=== PATIENT | male | born 1960 | race Caucasian/White ===

== ENCOUNTER 2025-03-08 10:02 | Inpatient (IN) | payer MEDICARE, MEDICAID ==
[2025-03-08 10:32] LABS: BASOPHILS ABSOLUTE AUTO 0.02 10^3/uL (0.00-0.10); BASOPHILS PERCENT AUTO 0.2 % (0.0-1.0); EOSINOPHILS ABSOLUTE AUTO 0.03 10^3/uL (0.10-0.30); EOSINOPHILS PERCENT AUTO 0.3 % (1.0-3.0); IMMATURE GRAN ABSOLUTE AUTO 0.03 10^3/uL (0.00-0.04); IMMATURE GRAN PERCENT AUTO 0.3 % (0.0-0.4); LYMPHOCYTES ABSOLUTE AUTO 1.61 10^3/uL (1.00-4.00); LYMPHOCYTES PERCENT AUTO 16.7 % (20.0-40.0); MEAN PLATELET VOLUME 8.9 fL (7.4-10.4); MONOCYTES ABSOLUTE AUTO 0.83 10^3/uL (0.10-0.80); MONOCYTES PERCENT AUTO 8.6 % (2.0-8.0); NEUTROPHILS ABSOLUTE AUTO 7.10 10^3/uL (2.50-7.00); NEUTROPHILS PERCENT AUTO 73.9 % (50.0-70.0); PLATELET COUNT,PLT 231 10^3/uL (150-400); RED BLOOD CELL COUNT 4.46 10^6/uL (4.50-6.00); RED CELL DISTRIBUTION WIDTH 12.5 % (11.5-14.5); WHITE BLOOD CELL COUNT,WBC 9.62 10^3/uL (5.00-10.00)
[2025-03-08 10:47] LABS: ALANINE AMINOTRANSFERASE,ALT 20.0 U/L (14-63); ASPARTATE AMNIOTRANSFERASE,AST 19.0 U/L (15-37); BILIRUBIN TOTAL 0.9 mg/dL (0.2-1.0); BLOOD UREA NITROGEN,BUN 11.0 mg/dL (7-18); CARBON DIOXIDE,CO2 20.9 mmol/L (21.0-32.0); CHLORIDE,CL 96.0 mmol/L (98-107); CREATININE 0.46 mg/dL (0.51-1.17); EST CRCL DRUG DOSING (CG) 164.87 mL/min; GLUCOSE RANDOM 85.0 mg/dL (70-140); POTASSIUM,K 4.1 mmol/L (3.5-5.1); PROTEIN TOTAL,TP 6.7 g/dL (6.4-8.2); SODIUM,NA 131.0 mmol/L (136-145)
[2025-03-08 10:48] LABS: ESTIMATED GFR 117.0 mL/min (>=60)
[2025-03-08] MEDS: Ketorolac 30 MG/ML SDV IVPUSH ONE (11:29)
[2025-03-08 12:40] LABS: APPEARANCE,URINE CLEAR (CLEAR); GLUCOSE,URINE NEGATIVE (NEGATIVE); OCCULT BLOOD,URINE NEGATIVE (NEGATIVE)
[2025-03-08] MEDS ORDERED: Ondansetron 4 MG/2 ML SDV IV PRN (15:22)
[2025-03-08] MEDS: Iopamidol 755 Mg/ML 100 ML Bottle IV ONE (16:09)
[2025-03-08] MEDS: Sennosides/Docusate Sodium 50-8.6 MG Tab PO SCH (16:18)
[2025-03-08] MEDS: Lactated Ringers 1,000 ML IV SCH (16:19)
[2025-03-08] MEDS: Ketorolac 30 MG/ML SDV IVPUSH PRN (16:19)
[2025-03-08] MEDS: Acetaminophen/oxyCODONE 325-5 MG Tab PO PRN (17:05)
[2025-03-09 07:17] LABS: BASOPHILS ABSOLUTE AUTO 0.01 10^3/uL (0.00-0.10); BASOPHILS PERCENT AUTO 0.1 % (0.0-1.0); EOSINOPHILS ABSOLUTE AUTO 0.05 10^3/uL (0.10-0.30); EOSINOPHILS PERCENT AUTO 0.7 % (1.0-3.0); IMMATURE GRAN ABSOLUTE AUTO 0.02 10^3/uL (0.00-0.04); IMMATURE GRAN PERCENT AUTO 0.3 % (0.0-0.4); LYMPHOCYTES ABSOLUTE AUTO 1.23 10^3/uL (1.00-4.00); LYMPHOCYTES PERCENT AUTO 16.9 % (20.0-40.0); MEAN PLATELET VOLUME 8.9 fL (7.4-10.4); MONOCYTES ABSOLUTE AUTO 0.67 10^3/uL (0.10-0.80); MONOCYTES PERCENT AUTO 9.2 % (2.0-8.0); NEUTROPHILS ABSOLUTE AUTO 5.28 10^3/uL (2.50-7.00); NEUTROPHILS PERCENT AUTO 72.8 % (50.0-70.0); PLATELET COUNT,PLT 223 10^3/uL (150-400); RED BLOOD CELL COUNT 3.99 10^6/uL (4.50-6.00); RED CELL DISTRIBUTION WIDTH 13.2 % (11.5-14.5); WHITE BLOOD CELL COUNT,WBC 7.26 10^3/uL (5.00-10.00)
[2025-03-09 07:48] LABS: ALANINE AMINOTRANSFERASE,ALT 22.0 U/L (14-63); ASPARTATE AMNIOTRANSFERASE,AST 22.0 U/L (15-37); BILIRUBIN TOTAL 0.8 mg/dL (0.2-1.0); BLOOD UREA NITROGEN,BUN 4.0 mg/dL (7-18); CARBON DIOXIDE,CO2 28.3 mmol/L (21.0-32.0); CHLORIDE,CL 104.0 mmol/L (98-107); CREATININE 0.47 mg/dL (0.51-1.17); EST CRCL DRUG DOSING (CG) 163.95 mL/min; GLUCOSE RANDOM 90.0 mg/dL (70-140); POTASSIUM,K 4.0 mmol/L (3.5-5.1); PROTEIN TOTAL,TP 5.7 g/dL (6.4-8.2); SODIUM,NA 138.0 mmol/L (136-145)
[2025-03-09 07:55] LABS: ESTIMATED GFR 116.0 mL/min (>=60)
[2025-03-09] MEDS: Omeprazole 20 MG Cap.CR PO SCH (12:00)
[2025-03-10 07:46] LABS: BASOPHILS ABSOLUTE AUTO 0.02 10^3/uL (0.00-0.10); BASOPHILS PERCENT AUTO 0.3 % (0.0-1.0); EOSINOPHILS ABSOLUTE AUTO 0.13 10^3/uL (0.10-0.30); EOSINOPHILS PERCENT AUTO 1.8 % (1.0-3.0); IMMATURE GRAN ABSOLUTE AUTO 0.03 10^3/uL (0.00-0.04); IMMATURE GRAN PERCENT AUTO 0.4 % (0.0-0.4); LYMPHOCYTES ABSOLUTE AUTO 1.29 10^3/uL (1.00-4.00); LYMPHOCYTES PERCENT AUTO 18.0 % (20.0-40.0); MEAN PLATELET VOLUME 8.9 fL (7.4-10.4); MONOCYTES ABSOLUTE AUTO 0.65 10^3/uL (0.10-0.80); MONOCYTES PERCENT AUTO 9.1 % (2.0-8.0); NEUTROPHILS ABSOLUTE AUTO 5.04 10^3/uL (2.50-7.00); NEUTROPHILS PERCENT AUTO 70.4 % (50.0-70.0); PLATELET COUNT,PLT 219 10^3/uL (150-400); RED BLOOD CELL COUNT 4.00 10^6/uL (4.50-6.00); RED CELL DISTRIBUTION WIDTH 13.3 % (11.5-14.5); WHITE BLOOD CELL COUNT,WBC 7.16 10^3/uL (5.00-10.00)
[2025-03-10 08:14] LABS: ALANINE AMINOTRANSFERASE,ALT 22.0 U/L (14-63); ASPARTATE AMNIOTRANSFERASE,AST 17.0 U/L (15-37); BILIRUBIN TOTAL 0.6 mg/dL (0.2-1.0); BLOOD UREA NITROGEN,BUN 5.0 mg/dL (7-18); CARBON DIOXIDE,CO2 27.7 mmol/L (21.0-32.0); CHLORIDE,CL 103.0 mmol/L (98-107); CREATININE 0.48 mg/dL (0.51-1.17); EST CRCL DRUG DOSING (CG) 160.53 mL/min; GLUCOSE RANDOM 89.0 mg/dL (70-140); POTASSIUM,K 3.9 mmol/L (3.5-5.1); PROTEIN TOTAL,TP 5.9 g/dL (6.4-8.2); SODIUM,NA 139.0 mmol/L (136-145)
[2025-03-10 08:15] LABS: ESTIMATED GFR 115.0 mL/min (>=60)
[2025-03-11 07:09] LABS: BASOPHILS ABSOLUTE AUTO 0.01 10^3/uL (0.00-0.10); BASOPHILS PERCENT AUTO 0.2 % (0.0-1.0); EOSINOPHILS ABSOLUTE AUTO 0.15 10^3/uL (0.10-0.30); EOSINOPHILS PERCENT AUTO 2.3 % (1.0-3.0); IMMATURE GRAN ABSOLUTE AUTO 0.01 10^3/uL (0.00-0.04); IMMATURE GRAN PERCENT AUTO 0.2 % (0.0-0.4); LYMPHOCYTES ABSOLUTE AUTO 1.15 10^3/uL (1.00-4.00); LYMPHOCYTES PERCENT AUTO 17.3 % (20.0-40.0); MEAN PLATELET VOLUME 8.5 fL (7.4-10.4); MONOCYTES ABSOLUTE AUTO 0.64 10^3/uL (0.10-0.80); MONOCYTES PERCENT AUTO 9.6 % (2.0-8.0); NEUTROPHILS ABSOLUTE AUTO 4.68 10^3/uL (2.50-7.00); NEUTROPHILS PERCENT AUTO 70.4 % (50.0-70.0); PLATELET COUNT,PLT 231 10^3/uL (150-400); RED BLOOD CELL COUNT 4.00 10^6/uL (4.50-6.00); RED CELL DISTRIBUTION WIDTH 13.6 % (11.5-14.5); WHITE BLOOD CELL COUNT,WBC 6.64 10^3/uL (5.00-10.00)
[2025-03-11 07:25] LABS: ALANINE AMINOTRANSFERASE,ALT 21.0 U/L (14-63); ASPARTATE AMNIOTRANSFERASE,AST 15.0 U/L (15-37); BILIRUBIN TOTAL 0.4 mg/dL (0.2-1.0); BLOOD UREA NITROGEN,BUN 8.0 mg/dL (7-18); CARBON DIOXIDE,CO2 30.1 mmol/L (21.0-32.0); CHLORIDE,CL 103.0 mmol/L (98-107); CREATININE 0.5 mg/dL (0.51-1.17); EST CRCL DRUG DOSING (CG) 154.11 mL/min; GLUCOSE RANDOM 91.0 mg/dL (70-140); POTASSIUM,K 4.1 mmol/L (3.5-5.1); PROTEIN TOTAL,TP 5.9 g/dL (6.4-8.2); SODIUM,NA 140.0 mmol/L (136-145)
[2025-03-11 07:29] LABS: ESTIMATED GFR 114.0 mL/min (>=60)
[2025-03-14] MEDS: Magnesium Hydroxide 400 MG/5 ML Susp 30 ML Cup PO PRN (14:47)
[2025-03-16] MEDS: Cyanocobalamin (Vitamin B12) 500 MCG Tab PO SCH (14:46)
[2025-03-17] MEDS: Cholecalciferol (Vitamin D3) 25 MCG Tab PO SCH (08:21)
[2025-03-17 11:04] VITALS: BP 131/73; PULSE 62
== END 2025-03-17 11:00 | disposition swing bed (61) | DRG 390 ==
LOC: KA.ED 10:02 → KA.MS 14:52
PROVIDERS: ADMIT Internal Medicine; ATTEND Internal Medicine
DX: K56.7 Ileus, unspecified (principal); K40.90 Unilateral inguinal hernia, without obstruction or gangrene, not specified as recurrent; F20.9 Schizophrenia, unspecified; F41.9 Anxiety disorder, unspecified; F90.9 Attention-deficit hyperactivity disorder, unspecified type; F17.210 Nicotine dependence, cigarettes, uncomplicated; Z88.8 Allergy status to other drugs, medicaments and biological substances; H54.7 Unspecified visual loss; E78.00 Pure hypercholesterolemia, unspecified; I10 Essential (primary) hypertension; F32.A Depression, unspecified; E87.8 Other disorders of electrolyte and fluid balance, not elsewhere classified; G47.00 Insomnia, unspecified; F10.20 Alcohol dependence, uncomplicated; F29 Unspecified psychosis not due to a substance or known physiological condition; Z66 Do not resuscitate; N40.0 Benign prostatic hyperplasia without lower urinary tract symptoms; Z85.828 Personal history of other malignant neoplasm of skin; Z98.890 Other specified postprocedural states; Z72.0 Tobacco use; Z79.891 Long term (current) use of opiate analgesic; Z79.899 Other long term (current) drug therapy; Z79.1 Long term (current) use of non-steroidal anti-inflammatories (NSAID)
CPT/HCPCS: 36415; 74177; 80053; 81003; 85025; 96361; 96374; 97110-GP; 97116-GP; 97129-GO; 97161-GP; 97165-GO; 99223-GT; 99232-GT; 99233-GT; 99239-GT; 99284; 99284-25; A9270-GY; J1650; J1885; J7030; J7120; Q3014; Q9967

== ENCOUNTER 2025-03-11 11:09 | Inpatient (IN) | payer MEDICARE, MEDICAID ==
[2025-03-17] MEDS ORDERED: Ondansetron 4 MG/2 ML SDV IV PRN (13:16)
[2025-03-17] MEDS: Omeprazole 20 MG Cap.CR - PTOM PO SCH (14:23)
[2025-03-17] MEDS: traMADol 50 MG Tab - PTOM PO PRN (15:45)
[2025-03-17] MEDS: LORAZEPAM 0.5 MG PO SCH (15:49)
[2025-03-17] MEDS ORDERED: Sennosides/Docusate Sodium 50-8.6 MG Tab PO SCH (21:00)
[2025-03-18] MEDS: Cholecalciferol (Vitamin D3) 25 MCG Tab PO SCH (08:36)
[2025-03-18] MEDS: Finasteride 5 MG Tab - PTOM PO SCH (08:40)
[2025-03-18] MEDS: Metoprolol Succinate 50 MG Tab.ER - PTOM PO SCH (08:40)
[2025-03-18] MEDS: Cyanocobalamin (Vitamin B12) 500 MCG Tab PO SCH (08:45)
[2025-03-18] MEDS: Acetaminophen/oxyCODONE 325-5 MG Tab PO ONE (09:51)
[2025-03-18] MEDS: Iopamidol 755 Mg/ML 100 ML Bottle IV ONE (10:41)
[2025-03-19] MEDS: Acetaminophen/oxyCODONE 325-5 MG Tab PO PRN (16:17)
[2025-03-20] MEDS: QUETIAPINE 25 MG PO SCH (20:24)
[2025-03-21] MEDS: Sennosides/Docusate Sodium 50-8.6 MG Tab PO SCH (17:18)
[2025-03-21] MEDS: Magnesium Hydroxide 400 MG/5 ML Susp 30 ML Cup PO PRN (17:18)
[2025-03-27 10:25] VITALS: BP 141/83; PULSE 58
== END 2025-03-27 10:00 | DRG 948 ==
LOC: KA.MS 03-17 11:28
PROVIDERS: ADMIT Family Medicine; ATTEND Family Medicine
DX: R53.81 Other malaise (principal); K56.7 Ileus, unspecified; Z66 Do not resuscitate; R10.30 Lower abdominal pain, unspecified; K59.00 Constipation, unspecified; K40.90 Unilateral inguinal hernia, without obstruction or gangrene, not specified as recurrent; F20.9 Schizophrenia, unspecified; F41.9 Anxiety disorder, unspecified; F90.9 Attention-deficit hyperactivity disorder, unspecified type; H54.7 Unspecified visual loss; E78.00 Pure hypercholesterolemia, unspecified; I10 Essential (primary) hypertension; F17.200 Nicotine dependence, unspecified, uncomplicated; F32.A Depression, unspecified; Z85.828 Personal history of other malignant neoplasm of skin; Z98.890 Other specified postprocedural states; Z88.8 Allergy status to other drugs, medicaments and biological substances
CPT/HCPCS: 74177; 87426-QW; 99307-GT; 99316-GT; A9270-GY; Q3014; Q9967